=== PATIENT | female | born 1995 | race Two or more races ===

== ENCOUNTER 2025-01-19 03:19 | Emergency (ER) | payer MEDICAID, SELFPAY ==
[2025-01-19 03:33] VITALS: BP 97/57; PULSE 79; RESP 16; TEMP 36.7; O2SAT 100
--- NOTE | 2025-01-19 04:19 | XR_ITS ---
Examination: Abdomen sonogram, Limited Date and time of exam: January 19, 2025, 0437 hrs. Indications: Epigastric pain beginning 3 hours ago Technique: Real-time shoemaker scale transabdominal sonographic images of the upper abdomen obtained. Findings: Suspicious for small gallstones Gallbladder wall 0.2 cm Common bile duct 0.3 cm Pancreatic head 1.9 cm Liver 16.5 cm smooth contour no focal liver lesions Normal hepatopedal portal venous flow Patent IVC Impression: Suspicious for small gallstones Negative for cholecystitis
--- NOTE | 2025-01-19 04:32 | PD.EDRME ---
Rapid Medical Screening Exam RME Arrival date/time: 01/19/25 03:19 Chief Complaint: Abdominal Pain Time Seen by Provider: 01/19/25 03:58 Vital signs: Vital Signs Temperature 98.1 F 01/19/25 03:33 Pulse Rate 79 01/19/25 03:33 Respiratory Rate 16 01/19/25 03:33 Blood Pressure 97/57 L 01/19/25 03:33 Pulse Oximetry (%) 100 01/19/25 03:33 Oxygen Delivery Method Room Air 01/19/25 03:33 Vital signs reviewed by provider: Yes RME Narrative: 29-year-old female presents to the ER complaining of epigastric abdominal pain which started at 2 AM this morning. Rapid medical exam performed to expedite care and facilitate ED flow; ongoing evaluation and disposition by main ED providers.
[2025-01-19 04:42] LABS: Basophils # (Auto) 0.0 Thou/mm3 (0.0-0.2); Basophils % (Auto) 0 % (0-2.5); Eosinophils # (Auto) 0.0 Thou/mm3 (0.0-0.5); Eosinophils % (Auto) 1 % (0-10); Hematocrit 34.3 % (36.0-46.0); Hemoglobin 10.4 g/dL (12.0-16.0); Immature Granulocytes Auto 0.01 Thou/mm3 (0.00-0.00); Lymphocytes # (Auto) 1.2 Thou/mm3 (1.0-4.8); Lymphocytes % (Auto) 26 % (10-50); Mean Corpuscular HGB Conc 30.3 g/dl (31.0-37.0); Mean Corpuscular Hemoglobin 22.8 pg (25.0-35.0); Mean Corpuscular Volume 75 fL (80-100); Monocytes # (Auto) 0.2 Thou/mm3 (0.0-0.8); Monocytes % (Auto) 5 % (0-12); Neutrophils # (Auto) 3.2 Thou/mm3 (1.8-7.7); Neutrophils % (Auto) 68 % (37-80); Nucleated Red Blood Cell # 0.00 Thou/mm3 (0.00-0.00); Nucleated Red Blood Cell % 0 /100 WBC (0); Platelet Count 226 Thou/mm3 (140-440); RDW Standard Deviation 43.7 fL (36.4-46.3); Red Blood Count 4.56 Miln/mm3 (4.00-5.20); White Blood Count 4.7 Thou/mm3 (3.6-11.0)
[2025-01-19 04:52] LABS: INR 0.9 (0.9-1.3); Prothrombin Time 10.3 Seconds (9.0-12.2)
[2025-01-19 04:57] LABS: Alanine Aminotransferase 19 U/L (10-49); Albumin, Serum 4.1 gm/dL (3.5-5.0); Albumin/Globulin Ratio 1.4 (1.2-2.2); Alkaline Phosphatase 58 U/L (46-116); Anion Gap 9 (7-16); Aspartate Amino Transferase 39 U/L (0-34); BUN/Creatinine Ratio 16 Ratio (12-20); Bilirubin,Total 0.4 mg/dL (0.3-1.2); Blood Urea Nitrogen 11 mg/dL (9-23); Calcium 8.6 mg/dL (8.3-10.6); Calcium (Corrected) 8.6 mg/dL (8.5-10.1); Carbon Dioxide 24.0 mMol/L (20.0-31.0); Chloride 107 mMol/L (98-107); Creatinine (Component) 0.7 mg/dL (0.6-1.3); Globulin 2.9 gm/dL (2.3-3.5); Glucose 172 mg/dL (74-106); Osmolality,Calculated 282 (275-295); Potassium 4.3 mMol/L (3.4-5.1); Sodium 140 mMol/L (136-145); Total Protein 7.0 gm/dL (5.7-8.2); eGFR > 60 See Note
[2025-01-19 05:43] LABS: Collection Type, Urine Clean Catch
[2025-01-19 05:57] LABS: Bacteria,Urine Rare; Bilirubin,Urine Negative (Negative); Blood,Urine Negative (Negative); Clarity,Urine Turbid (Clear/Hazy); Color,Urine Yellow (Lt Yel-Yel); Culture Indicated,Urine Not Indicated; Glucose, Urine Negative (Negative); Ketones,Urine Negative (Negative); Leukocyte Esterase,Urine Positive (Negative); Nitrite,Urine Negative (Negative); PH,Urine 5.5 (5.0-7.0); Protein,Urine Trace (Neg - Trace); RBC,Urine 2 /hpf (0-3); Specific Gravity,Urine 1.033 (1.001-1.035); Squamous Epithelial Cell,Urine 5 /hpf (0-5); Urobilinogen,Urine Negative mg/dL (0.0-1.0); WBC,Urine 10 /hpf (0-5)
[2025-01-19 05:58] LABS: HCG Qualitative,Urine Negative
[2025-01-19 06:01] VITALS: BP 111/56; PULSE 81; RESP 14; TEMP 37; O2SAT 99
[2025-01-19 06:12] VITALS: BMI 24.1
--- NOTE | 2025-01-19 06:50 | EDNOTE_ITS ---
<Statement entered by Mariia Yates MD - 02/08/25 06:56> I, Mariia Yates MD, have reviewed the history, exam, and assessment of the patient. I have evaluated the patient independently and agree with the plan of care documented by [ ]. All diagnostic studies were reviewed and discussed. I confirm the diagnosis as documented by the Resident. I was present during the Medical Decision Making for this patient. The patient's plan of care was created between myself and the Resident and consistent with our discussion of the patient's case. ED Abdominal Pain RME/HPI General Chief Complaint: Abdominal Pain Stated complaint: ABD PAIN Time seen by provider: 01/19/25 03:58 Arrival date/time: 01/19/25 03:19 RME / HPI RME / HPI narrative: 29-year-old female presents to the ER complaining of epigastric abdominal pain which started at 2 AM this morning. Rapid medical exam performed to expedite care and facilitate ED flow; ongoing evaluation and disposition by main ED providers. _ Ms. Bhanu Alvarez is a 29-year-old female with past medical history of hyperlipidemia who presented to [facility] emergency department on 01/19/2025 with a chief complaint of abdominal pain. Patient reported that his symptoms started earlier this night around 2 AM when she experienced sudden onset epigastric pain radiating to the right side and then generalized abdomen, reported that the pain is associated with nausea. Patient on evaluation currently complains of pain in the right upper quadrant, tenderness noted in the right upper quadrant as well reports that her nausea has improved comparatively. She denies any vomiting, diarrhea, constipation, palpitations, chest pain, blood in vomit or stool and other symptoms. She reported that she had a regular meal yesterday night. Related Data Allergies Allergy/AdvReac Type Severity Reaction Status Date / Time No Known Allergies Allergy Verified 01/19/25 03:22 Review of Systems Review of Systems Systems Reviewed: All systems reviewed, normal except as documented Past Medical History Past Medical History Comments PMH COMMENT: PMH: Positive for Hyperlipidemia PSHx: None Allergies: NKDFA Social history: -Smoking:Denies -Alcohol Use:Denies -Illicit Drug Use:Denies Family History: No pertinent Family History ED Exam Narrative Physical exam: Physical Exam General: Awake and in no acute distress. Conversational and non-toxic appearing. HEENT: Normocephalic, atraumatic, mucous membranes moist. Heart: Regular rate and rhythm, no murmurs. Lungs: Clear to auscultation with no wheezing or crackles. Abdomen: Soft, nondistended, RUQ tenderness, Beard Sign Negative, positive bowel sounds. ?No guarding or rebound tenderness. Neurologic: Alert and oriented x3, no gross neurological deficit, and patient able to move all 4 extremities. Extremities: No edema. Skin: No rash or ecchymoses. Course Course Course Narrative: 29-year-old female with past medical history of hyperlipidemia presented to ED for abdominal pain that started last night. Patient seen in room 4, workup was ordered in triage Workup: CBC: WBC 4.7, hemoglobin 10.4, hematocrit 34.3, MCV 75, MCH 22.8, MCHC 30.3, platelets 226 Coags: INR 0.9, PT 10.3 CMP: Sodium 140, potassium 4.3, chloride 107, bicarb 24.0, anion gap 9, BUN 11, creatinine 0.7, GFR greater than 60, glucose 172, calcium 8.6, T. bili 0.4, AST 39, ALT 19, alk phos 58, total protein 7.0, albumin 4.1, globulin 2.9 Urine analysis shows turbid urine pH 5.5, specific 1.033, trace protein blood bilirubin and nitrite negative leukocyte esterase positive, WBC 10, rare bacteria culture not indicated Urine hCG negative Ultrasound obtained shows suspicion of small gallstones negative for cholecystitis Patient was given IM Toradol 30 mg x 1, GI cocktail: Maalox and viscous lidocaine and patient reported that her pain has improved remarkably. Further plan is to discharge patient home, follow-up with primary care physician, discharge instructions as below. Quality Measures none Orders Category Date Time Status US abdomen limited Stat Exams 01/19/25 04:19 Completed CBC Stat Lab 01/19/25 04:34 Completed Comprehensive Metabolic Panel Stat Lab 01/19/25 04:34 Completed HCG Qualitative,Urine Stat Lab 01/19/25 05:09 Completed Prothrombin Time with INR Stat Lab 01/19/25 04:34 Completed Urinalysis, C/S if Indicated Stat Lab 01/19/25 05:09 Completed Ketorolac Inj [Toradol Inj] Med 01/19/25 06:44 Discontinued 30 mg IM X1 ONE Lidocaine 2% Viscous [Xylocaine 2% Viscous] Med 01/19/25 06:45 Discontinued 15 ml PO X1 ONE mg Hyd/Al Hyd/Tien Susp [Maalox Susp] Med 01/19/25 06:45 Discontinued 30 ml PO X1 ONE Vital Signs Vital signs: Vital Signs Temperature 98.1 F 01/19/25 03:33 Pulse Rate 79 01/19/25 03:33 Respiratory Rate 16 01/19/25 03:33 Blood Pressure 97/57 L 01/19/25 03:33 Pulse Oximetry (%) 100 01/19/25 03:33 Oxygen Delivery Method Room Air 01/19/25 03:33 Abdominal Pain MDM MDM Narrative MDM Narrative:: #Abdominal Pain #Suspicion of Gallstones 29-year-old female with past medical history of hyperlipidemia presented to ED for abdominal pain that started last night. No white count noted, did have microcytic hypochromic anemia, CMP unremarkable Urinalysis did show rare bacteria and 10 WBC with positive leukocyte esterase however patient asymptomatic denies any dysuria or lower abdominal tenderness Ultrasound obtained shows suspicion of small gallstones negative for cholecystitis Patient was given IM Toradol 30 mg x 1, GI cocktail: Maalox and viscous lidocaine and patient reported that her pain has improved remarkably. Further plan is to discharge patient home, follow-up with primary care physician, discharge instructions as below. Case discussed with Attending Physician Dr. Milan Gordon MD Internal Medicine PGY-2 Disclaimer: This note was dictated by speech recognition. Minor errors in life science teacher may be present due to voice recognition software. Patient data External records reviewed:: [facility] previous records Clinical information provided by:: patient Social determinants that could affect healthcare access:: none Patient has the following chronic illnesses:: HLD How is presenting disease/condition affected by chronic disease/condition?: uneffected by Evaluation data The following diagnostics were reviewed and interpreted by me:: lab results and radiology exam(s) Lab and/or radiology exams considered but not ordered:: None Interpretation Summary: CBC: WBC 4.7, hemoglobin 10.4, hematocrit 34.3, MCV 75, MCH 22.8, MCHC 30.3, platelets 226 Coags: INR 0.9, PT 10.3 CMP: Sodium 140, potassium 4.3, chloride 107, bicarb 24.0, anion gap 9, BUN 11, creatinine 0.7, GFR greater than 60, glucose 172, calcium 8.6, T. bili 0.4, AST 39, ALT 19, alk phos 58, total protein 7.0, albumin 4.1, globulin 2.9 Urine analysis shows turbid urine pH 5.5, specific 1.033, trace protein blood bilirubin and nitrite negative leukocyte esterase positive, WBC 10, rare bacteria culture not indicated Urine hCG negative Ultrasound obtained shows suspicion of small gallstones negative for cholecystitis Medications / Prescriptions Medications or Prescriptions considered but not ordered:: None Medication administrations:: Medication Administration History Discontinued Medications Al Hydrox/Mg Hydrox/Simethicone (Mg Hyd/Al Hyd/Tien (Maalox Reg) Susp 30 Ml Udc) 30 ml PO X1 ONE Stop: 01/19/25 06:46 Last Admin: 01/19/25 06:58 Dose: 30 ml Documented By: DT Ketorolac Tromethamine (Ketorolac Inj 30 Mg/Ml Vial) 30 mg IM X1 ONE Stop: 01/19/25 06:45 Last Admin: 01/19/25 06:58 Dose: 30 mg Documented By: DT Lidocaine HCl (Lidocaine Viscous 2% 15 Ml Udc) 15 ml PO X1 ONE Stop: 01/19/25 06:46 Last Admin: 01/19/25 06:58 Dose: 15 ml Documented By: DT As Above Consultations Consultation(s) initiated? (list below): No Diagnosis Differential diagnosis abdominal pain: abdominal pain, constipation, gastroenteritis and other (Gastritis, Colic) Most likely diagnosis given after review of the tests above:: Abdominal Pain Admission Indicated Admission indicated?: not indicated Admission Request Was there a request for admission?: No Disposition Plan Disposition Plan: Discharge Discharge Attestation Discharge Attestation: The patient and all family members were given an opportunity to ask questions and understood the discharge instructions. Discharge instructions specifically effects, indications for sooner follow up or return to the emergency department, and the expected course of current diagnosis. Patient condition: Stable Discharge Plan Plan Patient Disposition: HOME (Self Care) Patient condition on transfer: Stable Health Concerns: Discharge Instructions / Instrucciones de Jessie Reason for Visit / Motivo de la visita: You were evaluated in the Emergency Department for abdominal pain. Fue evaluado(a) en la kei de emergencias por dolor abdominal. Summary of Findings / Resumen de hallazgos * Your lab tests were mostly unremarkable, with no signs of infection. Jl an?lisis de laboratorio fueron en campbell mayor?a normales, sin se?ales de infecci?n. * However, you were found to have mild anemia. Sin embargo, se encontr? que tiene anemia leve. * An ultrasound of your gallbladder showed possible small gallstones, but you are currently not showing concerning symptoms. El ultrasonido de campbell ves?cula biliar mostr? posibles c?lculos biliares thiago?os , alonos actualmente no presenta s?ntomas preocupantes. Next Steps / Pr?ximos pasos * Follow up with your primary care physician in 1 week for further evaluation and management. Juan seguimiento con campbell m?dico de atenci?n primaria en 1 semana para m?s evaluaci?n y manejo. * Ask your doctor to order a lipid panel to check your cholesterol levels. Solicite a campbell m?dico un perfil de l?pidos para revisar jl niveles de colesterol. * Begin or continue a low-cholesterol diet. Comience o contin?e chris dieta baja en colesterol. * Stay well hydrated. Mant?scot florestado(a). Medications / Medicamentos * You may take Tylenol Extra Strength (acetaminophen) for pain as needed. Puede lydia Tylenol Extra Joey (acetaminof?n) seg?n sea necesario para el dolor. * You may also use Ibuprofen (Advil, Motrin) if there are no contraindications. Tambi?n puede usar Ibuprofeno (Advil, Motrin) si no tiene contraindicaciones m?dicas. When to Return to the Emergency Department / Cu?ndo regresar a la kei de emergencias Return immediately if you experience: Regrese inmediatamente si presenta: * Worsening or severe abdominal pain Dolor abdominal que empeora o se vuelve soila * Fever or chills Fiebre o escalofr?os * Nausea or vomiting that doesn't go away N?useas o v?mitos persistentes * Yellowing of the skin or eyes (jaundice) Color amarillo en la piel o los ojos (ictericia) If you have any questions, contact your doctor or return to the Emergency Department. Si tiene preguntas, contacte a campbell m?dico o regrese a la kei de emergencias. Prescriptions/Referrals Prescriptions/Med Rec: Discontinued Vitamin Tablet 1 tab PO QDAY Referrals: Lawrence Cordova MD [Primary Care Provider, Family Practice] - In 1 week Problem List Clinical Impression: Gallstones, Abdominal pain Patient/Caregiver Discharge Instructions Discharge Activity: activity as tolerated Education Materials: Treating Gallstones, Medicine for Pain Print Language: [place] Islander Stand Alone Forms: Diana Award Info., Patient Portal Info Letter
[2025-01-19] MEDS: LIDOCAINE VISCOUS 2% 15 ML UDC PO (06:58)
[2025-01-19] MEDS: MG HYD/AL HYD/SIME (Maalox Reg) SUSP 30 ML UDC PO (06:58)
[2025-01-19] MEDS: KETOROLAC INJ 30 MG/ML VIAL IM (06:58)
[2025-01-19 08:02] VITALS: BP 107/66; PULSE 88; RESP 14; TEMP 37.1; O2SAT 99
== END 2025-01-19 08:15 | disposition home or self-care (01) ==
PROVIDERS: Physician Assistant; Emergency Provider Emergency Medicine; PCP Family Medicine
DX: K80.20 Calculus of gallbladder without cholecystitis without obstruction (principal)
CPT/HCPCS: 36415; 76705; 80053; 81001; 81025; 85025; 85610; 96372; 99283; J1885; J3490; A9270